=== PATIENT | female | born 1980 | race Caucasian/White ===

== ENCOUNTER 2017-12-26 10:11 | Day surgery (SDC) | payer BC ==
[~2017-12-26] VITALS: Ht 170.2 cm; Wt 72.5 kg
[~2017-12-26 10:11] MED LIST: ENDOCET 5-3251 EACH PO; FLINTSTONES1 EACH PO; GLYBURIDE1.25 MG PO; GLYBURIDE2.5 MG PO; IBUPROFEN800 MG PO; ORTHO TRI-CY1 TABLE1 PO
[2017-12-26 10:39] VITALS: BP 137/81
[2017-12-26] MEDS ORDERED: NORCO 5/3251 TABLET PO (12:34)
[2017-12-26 14:25] VITALS: BP 139/85
[2017-12-26 15:20] VITALS: BP 133/76
== END 2017-12-26 15:40 | disposition home or self-care (01) ==
LOC: SDC 10:11
PROC: 0FT44ZZ Resection of Gallbladder, Percutaneous Endoscopic Approach (ICD-10-PCS; principal; 2017-12-26)
DX: K80.10 Calculus of gallbladder with chronic cholecystitis without obstruction (principal)
CPT/HCPCS: 88304; J1100; J1170; J1885; J2250; J2405; J2710; J3010; S0074